=== PATIENT | female | born 1970 | race Caucasian/White ===

== ENCOUNTER → 2022-04-03 15:36 | Outpatient (CLI) | payer MEDICARE, SELFPAY ==
[2022-04-03 16:37] LABS: Basophils # 0.1 K/mm3 (0-0.2); Eosinophils # 0.1 K/mm3 (0.0-0.4); Eosinophils % 0.9 % (0.1-12.0); Hematocrit 43.3 % (37.0-47.0); Lymphocytes # 2.9 K/mm3 (0.7-4.5); Lymphocytes % 29.1 % (10-50); Mean Corpuscular HGB Conc 32.4 g/dL (31.8-35.4); Mean Corpuscular Volume 104.7 fl (81-99); Mean Platelet Volume 9.8 fl (7.4-10.4); Monocytes # 0.6 K/mm3 (0.1-1.0); Monocytes % 5.6 % (1.7-9.3); Neutrophils # 6.2 K/mm3 (1.8-7.8); Neutrophils % 63.4 % (37.0-80.0); Platelet Count 297 K/mm3 (142-424); Red Blood Count 4.14 M/mm3 (4.20-5.40); Red Cell Distribution Width 13.1 % (11.5-17.5); White Blood Count 9.8 K/mm3 (4.8-10.8)
[2022-04-03 17:33] LABS: Erythrocyte Sedimentation Rate 18 mm/hr (0-30)
[2022-04-03 17:42] LABS: Alanine Aminotransferase 25 U/L (12-78); Albumin Level 3.6 g/dl (3.5-5.0); Albumin/Globulin Ratio 1.2 (1.1-1.8); Alkaline Phosphatase 111 U/L (38-126); Anion Gap 10.8 mEq/L (5-15); Aspartate Amino Transferase 44 U/L (14-36); Bilirubin,Total 0.5 mg/dl (0.2-1.3); Blood Urea Nitrogen 5 mg/dl (7-17); Calcium 9.7 mg/dl (8.4-10.2); Carbon Dioxide 29 mmol/L (22.0-30.0); Chloride 103 mmol/L (98-107); Chol/HDL Ratio 3.9 (1-3.5); Cholesterol 116 mg/dl (140-200); Estimated Glomerular Filt Rate 104 ml/min (>60); GFR (African American) 126 ML/MIN (>60); Globulin 2.9 g/dL (1.3-3.2); Glucose 94 mg/dl (74-100); HDL Cholesterol 30 mg/dl (40-60); Potassium 3.8 mmoL/L (3.5-5.1); Sodium 139 mmol/L (136-145); Total Protein,Serum 6.5 g/dl (6.3-8.2); Triglycerides 90 mg/dl (30-150); VLDL Cholesterol 18 mg/dL (0-40)
[2022-04-03 17:53] LABS: Direct LDL Cholesterol 61.66 mg/dL (100-129)
[2022-04-03 17:58] LABS: 25-OH Vitamin D, Total 19.8 ng/mL (30-100)
[2022-04-03 17:59] LABS: T4 (Thyroxine) 11.3 ug/dl (5.53-11.0)
[2022-04-03 18:08] LABS: INR 1.04 (0.9-1.1); Prothrombin Time 11.7 seconds (10.1-12.5)
[2022-04-03 18:13] LABS: Thyroid Stimulating Hormone 1.39 uIU/mL (0.465-4.68)
[2022-04-03 18:43] LABS: Hemoglobin A1C 4.9 % (4.0-6.0)
[2022-04-05 08:12] LABS: HIV Screen 4th Generation wRfx Non Reactive (Non Reactive); Hepatitis C Antibody 3.4 s/co ratio (0.0-0.9); RA Latex Turbid. <10.0 IU/mL (<14.0)
[2022-04-07 16:23] LABS: Lupus Reflex Interpretation Comment: (.); PTT-LA 37.7 sec (0.0-51.9); dRVVT 35.8 sec (0.0-47.0)
[2022-04-08 02:08] LABS: ALT (SGPT) P5P 24 IU/L (0-40); Alpha 2-Macroglobulins, Qn 317 mg/dL (110-276); Apolipoprotein A-1 94 mg/dL (116-209); Bilirubin, Total 0.5 mg/dL (0.0-1.2); Fibrosis Score 0.46 (0.00-0.21); Fibrosis Stage F1-F2 (.); GGT 16 IU/L (0-60); Haptoglobin 120 mg/dL (33-346); Necroinflammat Activity Grade A0-No activity (.); Necroinflammat Activity Score 0.13 (0.00-0.17)
[2022-04-08 04:21] LABS: Hep A Ab, Total Negative (Negative); Hep B Core Ab, Total Negative (Negative); Hep B Surface Ab, Qual Non Reactive (.)
[2022-04-30 07:41] LABS: Hep A Ab, IgM Negative
== END ==
PROVIDERS: PCP Nurse Practitioner Family; Visit Provider Nurse Practitioner Family
DX: E11.9 Type 2 diabetes mellitus without complications; E78.5 Hyperlipidemia, unspecified; F32.A Depression, unspecified; I10 Essential (primary) hypertension; R53.83 Other fatigue; B19.20 Unspecified viral hepatitis C without hepatic coma; E55.9 Vitamin D deficiency, unspecified; Z11.4 Encounter for screening for human immunodeficiency virus [HIV]; D68.8 Other specified coagulation defects
CPT/HCPCS: 36415; 80053; 80061; 81241; 81596; 82043; 82306; 83036; 84436; 84443; 85025; 85610; 85613; 85651; 86431; 86703; 86704; 86706; 86708; 87380; 87522; G0432

== ENCOUNTER → 2022-12-10 15:30 | Outpatient (CLI) | payer MEDICARE, SELFPAY ==
[2022-12-10 19:36] LABS: Alanine Aminotransferase 13 U/L (12-78); Albumin Level 4.2 g/dl (3.5-5.0); Albumin/Globulin Ratio 1.5 (1.1-1.8); Alkaline Phosphatase 100 U/L (38-126); Anion Gap 7.5 mEq/L (5-15); Aspartate Amino Transferase 24 U/L (14-36); Bilirubin,Total 0.6 mg/dl (0.2-1.3); Blood Urea Nitrogen 8 mg/dl (7-17); Calcium 9.1 mg/dl (8.4-10.2); Carbon Dioxide 31 mmol/L (22.0-30.0); Chloride 106 mmol/L (98-107); Chol/HDL Ratio 3.4 (1-3.5); Cholesterol 136 mg/dl (140-200); Estimated Glomerular Filt Rate 87 ml/min (>60); GFR (African American) 106 ML/MIN (>60); Globulin 2.8 g/dL (1.3-3.2); Glucose 127 mg/dl (74-100); HDL Cholesterol 40 mg/dl (40-60); Potassium 4.5 mmoL/L (3.5-5.1); Sodium 140 mmol/L (136-145); Triglycerides 100 mg/dl (30-150); VLDL Cholesterol 20 mg/dL (0-40)
[2022-12-10 19:47] LABS: Direct LDL Cholesterol 78.81 mg/dL (100-129)
[2022-12-10 20:05] LABS: Thyroid Stimulating Hormone 0.75 uIU/mL (0.465-4.68)
[2022-12-10 20:24] LABS: Vitamin B12 220 pg/mL (239-931)
== END ==
PROVIDERS: PCP Physician Assistant; Visit Provider Physician Assistant
DX: E78.5 Hyperlipidemia, unspecified (principal); G62.9 Polyneuropathy, unspecified
CPT/HCPCS: 80053; 80061; 82607; 84443

== ENCOUNTER 2024-03-23 19:29 | Outpatient (CLI) | payer MEDICARE, MEDICAID, SELFPAY ==
[2024-03-23 20:36] LABS: Basophils # 0.1 K/mm3 (0-0.2); Basophils % 0.9 % (0.1-2.0); Eosinophils # 0.2 K/mm3 (0.0-0.4); Eosinophils % 3.3 % (0.1-12.0); Hemoglobin 14.4 g/dL (12.2-16.2); Lymphocytes # 1.7 K/mm3 (0.7-4.5); Lymphocytes % 26.8 % (10-50); Mean Corpuscular HGB Conc 31.2 g/dL (31.8-35.4); Mean Corpuscular Hemoglobin 31.8 pg (27.0-31.2); Mean Corpuscular Volume 101.8 fl (81-99); Mean Platelet Volume 10.5 fl (7.4-10.4); Monocytes # 0.5 K/mm3 (0.1-1.0); Monocytes % 7.9 % (1.7-9.3); Neutrophils # 3.8 K/mm3 (1.8-7.8); Neutrophils % 61.1 % (37.0-80.0); Platelet Count 280 K/mm3 (142-424); Red Blood Count 4.52 M/mm3 (4.20-5.40); Red Cell Distribution Width 13.8 % (11.5-17.5); White Blood Count 6.2 K/mm3 (4.8-10.8)
[2024-03-23 21:07] LABS: Hemoglobin A1C 5.1 % (4.0-6.0)
[2024-03-23 21:31] LABS: Alanine Aminotransferase 12 U/L (12-78); Albumin Level 4.1 g/dl (3.5-5.0); Albumin/Globulin Ratio 1.5 (1.1-1.8); Alkaline Phosphatase 96 U/L (38-126); Anion Gap 15.3 mEq/L (5-15); Aspartate Amino Transferase 25 U/L (14-36); Bilirubin,Total 0.5 mg/dl (0.2-1.3); Blood Urea Nitrogen 4 mg/dl (7-17); Calcium 9.4 mg/dl (8.4-10.2); Carbon Dioxide 29 mmol/L (22.0-30.0); Chloride 99 mmol/L (98-107); Chol/HDL Ratio 3.6 (1-3.5); Cholesterol 141 mg/dl (140-200); Estimated Glomerular Filt Rate 65 ml/min (>60); GFR (African American) 78 ML/MIN (>60); Globulin 2.7 g/dL (1.3-3.2); Glucose 67 mg/dl (74-100); HDL Cholesterol 39 mg/dl (40-60); Potassium 4.3 mmoL/L (3.5-5.1); Sodium 139 mmol/L (136-145); Total Protein,Serum 6.8 g/dl (6.3-8.2); Triglycerides 122 mg/dl (30-150); VLDL Cholesterol 24 mg/dL (0-40)
[2024-03-23 21:47] LABS: 25-OH Vitamin D, Total 25.1 ng/mL (30-100)
[2024-03-23 22:01] LABS: Thyroid Stimulating Hormone 2.24 uIU/mL (0.465-4.68)
[2024-03-23 22:20] LABS: Vitamin B12 243 pg/mL (239-931)
== END 2024-03-23 23:59 | disposition home or self-care (01) ==
LOC: LAB.DROPOF 19:33
PROVIDERS: PCP Family Medicine; Visit Provider Family Medicine
DX: A49.9 Bacterial infection, unspecified (principal); N39.0 Urinary tract infection, site not specified; R53.83 Other fatigue; E05.90 Thyrotoxicosis, unspecified without thyrotoxic crisis or storm; E55.9 Vitamin D deficiency, unspecified; R73.09 Other abnormal glucose; E78.5 Hyperlipidemia, unspecified; E53.8 Deficiency of other specified B group vitamins
CPT/HCPCS: 80053; 80061; 82306; 82607; 83036; 84443; 85025; 87086

== ENCOUNTER 2024-03-23 19:35 | Outpatient (CLI) | payer MEDICARE, MEDICAID, SELFPAY | END 2024-03-23 23:59 | disposition home or self-care (01) | LOC: LAB.DROPOF 19:38 | PROVIDERS: PCP Family Medicine; Visit Provider Family Medicine | DX: N39.0 Urinary tract infection, site not specified (principal); A49.9 Bacterial infection, unspecified ==